=== PATIENT | male | born 1950 | race Hispanic/Latino ===

== ENCOUNTER 2017-09-29 10:22 | Emergency (ER) | payer MEDICARE ==
[2017-09-29 11:57] LABS: Basophils % (Auto) 0.4 % (0.0-1.8); Eosinophils % (Auto) 0.3 % (0.0-4.3); Hematocrit 38.7 % (35.5-45.6); Hemoglobin 13.1 gm/dl (11.8-15.2); Mean Corpuscular HGB Conc 34 % (32-34); Mean Corpuscular Hemoglobin 37 pg (28-32); Mean Corpuscular Volume 109 fl (84-94); Platelet Count 138 K/mm3 (140-440); Red Blood Count 3.55 M/mm3 (3.65-5.03); Red Cell Distribution Width 15.1 % (13.2-15.2); White Blood Count 8.9 K/mm3 (4.5-11.0)
[2017-09-29] MEDS ORDERED: ZOFRAN IV ONE (12:03)
[2017-09-29] MEDS ORDERED: NACL 0.9% 1000 ML 1,000 ML IV ONE ×2 (12:03→16:10)
[2017-09-29 12:14] LABS: Anion Gap 17 mmol/L; BUN/Creatinine Ratio 12; Blood Urea Nitrogen 7 mg/dL (9-20); Calcium 8.1 mg/dL (8.4-10.2); Carbon Dioxide 27 mmol/L (22-30); Chloride 95.3 mmol/L (98-107); Glucose 97 mg/dL (75-100); Potassium 3.4 mmol/L (3.6-5.0); Sodium 136 mmol/L (137-145)
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
[2017-09-29 12:16] LABS: Albumin 2.8 g/dL (3.9-5); Albumin/Globulin Ratio 0.8 %; Bilirubin,Direct 0.3 mg/dL (0-0.2); Bilirubin,Indirect 0.8 mg/dL; Bilirubin,Total 1.1 mg/dL (0.1-1.2); Total Protein 6.2 g/dL (6.3-8.2)
--- NOTE | 2017-09-29 13:02 | Cat Scan Report ---
CT HEAD WITHOUT CONTRAST INDICATION: Dizziness. COMPARISON: None similar at this institution. FINDINGS: Noncontrast head CT demonstrates symmetric, age-appropriate, mildly enlarged ventricles and sulci. Mild periventricular hypodensities. No acute infarct, hemorrhage, mass effect or midline shift. No abnormal extra axial fluid collections. Normal posterior fossa with preserved basilar cisterns. Normal eye globes. Slight rightward nasal septal deviation and 4-5 mm rightward nasal septal spur. Clear imaged paranasal sinuses and mastoid air cells. Bilateral external auditory canal debris may be directly visualized. Atherosclerotic ICA calcifications. Normal calvarium and scalp. Cervical spondylosis. CONCLUSION: No acute intracranial CT abnormality, as described. Thank you for the opportunity to participate in this patient's care.
--- NOTE | 2017-09-29 13:54 | Cat Scan Report ---
FINAL REPORT EXAM: CT ABDOMEN PELVIS WO CON HISTORY: right flank pain, diarrhea, dizziness TECHNIQUE: Noncontrast CT of the abdomen and pelvis performed. No IV or gastrointestinal contrast was administered.Coronal and sagittal reformatted images were obtained. PRIORS: None. FINDINGS: The visualized aspects of the lung bases are clear. There is a small hiatal hernia. There is cholelithiasis. Specifically there are numerous gallstones. There is fatty infiltration of the liver. Within the limitations of a non-enhanced study, the visualized spleen, pancreas, adrenal glands and right kidney demonstrate no significant abnormalities. There is a punctate nonobstructing left intrarenal calculus. There is no hydronephrosis or other evidence for acute obstructive uropathy seen. There is no abdominal aortic aneurysm. There is no evidence of intestinal obstruction. The appendix is normal. There is a small fat containing umbilical hernia. There is no free intraperitoneal air. There are no abnormal fluid collections seen. There is nonspecific mild bladder wall thickening. IMPRESSION: Mild fatty liver. Cholelithiasis. Specifically there are numerous moderate and small gallstones. The small fat containing umbilical hernia. Very small hiatal hernia. Punctate nonobstructing left intrarenal calculus. No hydronephrosis or evidence for acute obstructive uropathy. Nonspecific diffuse bladder wall thickening.
[2017-09-29 15:34] LABS: Bilirubin,Urine SM (Negative); Blood,Urine NEG (Negative); Ketones,Urine 20 mg/dL (Negative); Leukocyte Esterase,Urine NEG (Negative); Mucus,Urine 3+ /HPF; Nitrite,Urine NEG (Negative)
[2017-09-29 18:37] VITALS: BP 143/91
== END 2017-09-29 18:38 | disposition home or self-care (01) ==
LOC: ED 10:22
DX: R19.8 Other specified symptoms and signs involving the digestive system and abdomen (principal); E86.0 Dehydration; R42 Dizziness and giddiness; R10.9 Unspecified abdominal pain; Z90.49 Acquired absence of other specified parts of digestive tract; Z93.3 Colostomy status
CPT/HCPCS: 36415; 70450; 74176; 80048; 80074; 81001; 83690; 84484; 85025; 93005; 93010; 96361; 96374; 99285; J2405; J7030

== ENCOUNTER 2018-11-02 07:49 | Outpatient (CLI) | payer MEDICARE, MEDICAID | END 2018-11-02 07:50 | disposition home or self-care (01) | LOC: WOUND 07:49 | PROVIDERS: ATTEND Surgery | DX: I87.313 Chronic venous hypertension (idiopathic) with ulcer of bilateral lower extremity (principal); L97.822 Non-pressure chronic ulcer of other part of left lower leg with fat layer exposed; L97.811 Non-pressure chronic ulcer of other part of right lower leg limited to breakdown of skin; Z87.891 Personal history of nicotine dependence | CPT/HCPCS: 99214; G0463 ==

== ENCOUNTER 2019-02-19 07:59 | Outpatient (CLI) | payer MEDICARE ==
[2019-02-19] MEDS ORDERED: XYLOCAINE TOPICAL 4% TP ONE (09:00)
== END 2019-02-19 08:00 | disposition home or self-care (01) ==
LOC: WOUND 07:59
PROVIDERS: ATTEND Surgery
DX: L97.822 Non-pressure chronic ulcer of other part of left lower leg with fat layer exposed (principal); L97.812 Non-pressure chronic ulcer of other part of right lower leg with fat layer exposed; L97.511 Non-pressure chronic ulcer of other part of right foot limited to breakdown of skin; L97.521 Non-pressure chronic ulcer of other part of left foot limited to breakdown of skin; I87.2 Venous insufficiency (chronic) (peripheral); Z87.891 Personal history of nicotine dependence

== ENCOUNTER 2019-02-26 08:24 | Outpatient (CLI) | payer MEDICARE ==
[2019-02-26] MEDS ORDERED: XYLOCAINE TOPICAL 4% TP ONE (09:00)
[2019-02-26] MEDS ORDERED: AD OINTMENT TP SCH (10:00)
== END 2019-02-26 08:25 | disposition home or self-care (01) ==
LOC: WOUND 08:24
PROVIDERS: ATTEND Surgery
DX: L97.822 Non-pressure chronic ulcer of other part of left lower leg with fat layer exposed (principal); L97.812 Non-pressure chronic ulcer of other part of right lower leg with fat layer exposed; L97.511 Non-pressure chronic ulcer of other part of right foot limited to breakdown of skin; L97.521 Non-pressure chronic ulcer of other part of left foot limited to breakdown of skin; I10 Essential (primary) hypertension; I87.2 Venous insufficiency (chronic) (peripheral); Z87.891 Personal history of nicotine dependence
CPT/HCPCS: A6250

== ENCOUNTER 2019-02-28 05:49 | Day surgery (SDC) | payer MEDICARE ==
[2019-02-28] MEDS: NACL 0.9% 500 ML 500 ML IV SCH ×2 (06:41→10:00)
[2019-02-28 07:07] LABS: Hematocrit 31.1 % (35.5-45.6); Mean Corpuscular HGB Conc 35 % (32-34); Mean Corpuscular Volume 101 fl (84-94); Platelet Count 206 K/mm3 (140-440); Red Blood Count 3.09 M/mm3 (3.65-5.03); Red Cell Distribution Width 15.5 % (13.2-15.2)
[2019-02-28 07:17] LABS: INR 0.95 (0.87-1.13)
[2019-02-28 07:18] LABS: Partial Thromboplastin Time 36.8 Sec. (24.2-36.6)
[2019-02-28 07:21] LABS: BUN/Creatinine Ratio 18; Blood Urea Nitrogen 14 mg/dL (9-20); Calcium 8.3 mg/dL (8.4-10.2); Hemolysis Index 26
[2019-02-28] MEDS ORDERED: HEPARIN/NS 5000 UNIT/500ML(CATH LAB) 1,000 ML IR ONE (08:51)
[2019-02-28] MEDS ORDERED: HEPARIN 10,000 UNITS/10 ML ONE ×2 (08:51→09:52)
[2019-02-28] MEDS ORDERED: ANCEF/STERILE WATER 2 GM/20 ML 2 GM/20 ML SYRINGE IV ONE (08:52)
[2019-02-28] MEDS ORDERED: XYLOCAINE 2% INFILTRATI ONE (08:52)
[2019-02-28] MEDS ORDERED: HEPARIN/NS 5000 UNIT/500ML(CATH LAB) 500 ML IR ONE (09:15)
[2019-02-28] MEDS ORDERED: CALAN ONE (09:52)
[2019-02-28] MEDS ORDERED: NITROGLYCERIN SYRINGE 9 ML ONE (09:52)
[2019-02-28] MEDS: SUBLIMAZE ONE ×2 (10:01→10:09)
[2019-02-28] MEDS: VERSED ONE ×2 (10:01→10:09)
--- NOTE | 2019-02-28 10:53 | Short Stay Summary ---
Short Stay Documentation Date of service: 02/28/19 Narrative H&P: 68 year old male with nonhealing ulcerations of the lower extremities who presents for diagnostic angiogram due to swelling with nonpalpable pulses. - History Principal diagnosis: Mixed ulcerations of the bilateral lower extremities H&P: obtained from office - Allergies and Medications Current Medications: Allergies No Known Allergies Allergy (Verified 09/13/18 11:40) Home Medications Medication Instructions Recorded Confirmed Last Taken Type Famotidine [Pepcid] 20 mg PO BID #30 tablet 09/18/18 02/28/19 Unknown Rx Furosemide [Lasix TAB] 40 mg PO QDAY #30 tablet 09/18/18 02/28/19 02/27/19 Rx Spironolactone [Aldactone] 25 mg PO QDAY #30 tablet 09/18/18 02/28/19 02/27/19 Rx Carvedilol [Coreg] 1 tab PO DAILY 02/28/19 02/28/19 02/27/19 History Clindamycin [Clindamycin CAP] 300 mg PO TID #30 cap 02/28/19 Unknown Rx Saccharomyces Boulardii [Probiotic] 250 mg PO BID #50 capsule 02/28/19 Unknown Rx hydroCHLOROthiazide [HCTZ] 25 mg PO DAILY 02/28/19 02/28/19 02/27/19 History traMADol [Ultram 50 MG tab] 50 mg PO TID PRN #20 tablet 02/28/19 Unknown Rx Active Medications Sodium Chloride (Nacl 0.9% 500 Ml) 500 mls @ 50 mls/hr IV DIRECT CAM Last Admin: 02/28/19 10:00 Dose: 50 mls/hr Documented by: - Physical exam General appearance: no acute distress Lungs: Normal air movement Heart: Regular rate Gastrointestinal: normal Extremities: normal temperature, normal color, abnormal (swelling, multiple ulcerations of the calves) - Brief post op/procedure progress note Date of procedure: 02/28/19 Pre-op diagnosis: Mixed arterial and venous disease Post-op diagnosis: same Procedure: Diagnostic angiogram of the bilateral lower extremities Anesthesia: local (w/ conscious sedation) Surgeon: ESME GOMEZ Estimated blood loss: minimal Condition: stable - Hospital course Hospital course: Ready for discharge after TR band deflated. - Disposition Condition at discharge: Stable Disposition: DC- TO HOME OR SELFCARE - Discharge Diagnoses (1) Atherosclerotic PVD with ulceration Status: Acute (2) Venous hypertension, chronic, with ulcer Status: Acute (3) Cirrhosis Status: Acute (4) Venous insufficiency (chronic) (peripheral) Status: Acute Short Stay Discharge Plan Activity: advance as tolerated Weight Bearing Status: Weight Bear as Tolerated Diet: other (keep fluid restricted to 1.5L per day) Wound: keep clean and dry Additional Instructions: Do not lift more than 10 pounds with left hand for next week. Follow up with: VISHAL PAYNE MD [Primary Care Provider] - 7 Days Prescriptions: Clindamycin [Clindamycin CAP] 300 mg PO TID #30 cap Saccharomyces Boulardii [Probiotic] 250 mg PO BID #50 capsule traMADol [Ultram 50 MG tab] 50 mg PO TID PRN #20 tablet PRN Reason: Pain , Severe (7-10)
--- NOTE | 2019-02-28 11:04 | Operative Report ---
Operative Report Operative Report: EXAM: 1. Ultrasound-guided access of the left radial artery. 2. Third order selection of the right superficial femoral artery with angiography of the right lower extremity 3. Third order selection of the left superficial femoral artery with angiography of the left lower extremity 4. Selection of the abdominal aorta with aortography DATE: 02/28/19 WINDOW GLAZIER HELPER: ESME GOMEZ MD INDICATION: 68-year-old male with nonpalpable pedal pulses, and extensive ulcerations of the lower extremities with swelling and pain who has venous disease, and may also have arterial disease with mixed disease. MEDICATIONS: Please see nursing report for full details. CONTRAST: Please see lab animal technologist report for full details. PROCEDURE: The risks, benefits, and alternatives were discussed the patient; written informed consent was obtained. The left wrist was prepped and draped in a sterile fashion. The left radial artery was small but patent. Under direct ultrasound guidance, the left radial artery was accessed with a 21-gauge micropuncture needle. 0.018 inch wire was passed into the radial artery. Needle was exchanged for a 4/5 [place] glidesheath slender radial sheath. Radial cocktail was then administered. 0.035 inch wire and pigtail catheter were then used to select the abdominal aorta. Digital subtraction angiography was performed. Catheter was exchanged for a 4 Malaysian angled catheter. The right superficial femoral artery was selected and digital subtraction angiography was performed with the right lower extremity with runoff. Catheter was retracted to the right common femoral artery and digital subtraction angiography was performed. Catheter was retracted the right external iliac artery and digital subtraction angiography was performed. The leftsuperficial femoral artery was selected and digital subtraction angiography was performed with the left lower extremity with runoff. Catheter w as retracted to the left common femoral artery and digital subtraction angiography was performed. Catheter was retracted the left external iliac artery and digital subtraction angiography was performed. After reviewing the images, all wires, catheters, and sheaths were removed. TR band applied. Patient tolerated the procedure well. No immediate postprocedure complication. FINDINGS: AORTA: Infrarenal abdominal aorta was patent. RIGHT LOWER EXTREMITY: The right common iliac artery, external iliac artery, internal iliac artery, common femoral artery, profundofemoral artery, and superficial femoral artery were patent. The popliteal artery was patent. 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 The peroneal artery had some mild irregularity with less than 50% narrowing. The anterior tibial and posterior tibial artery were patent. The dorsalis pedis was quite small, but patent. LEFT LOWER EXTREMITY: The left common iliac artery, left external iliac artery, left internal iliac artery, common femoral artery, profundofemoral artery, and superficial femoral artery were patent. The popliteal artery was patent. The anterior tibial ar sangeeta, peroneal artery, and posterior tibial artery were patent. The dorsalis pedis was diminutive and supplied by both anterior communicating branches and the anterior tibial artery. IMPRESSION: 1. Successful bilateral lower extremity third order selection's with angiography of the abdominal aorta and lower extremities.
[2019-02-28] MEDS ORDERED: NORCO 5/325 PO PRN (12:09)
[2019-02-28 13:40] VITALS: BP 103/55
[2019-02-28 15:14] LABS: Anisocytosis 1+; Platelet Estimate Consistent w Auto; Total Cells Counted 100
== END 2019-02-28 14:20 | disposition home or self-care (01) ==
LOC: CATHLABREC 05:49
PROVIDERS: ATTEND Radiology Diagnostic Radiology
DX: I70.25 Atherosclerosis of native arteries of other extremities with ulceration (principal); I87.313 Chronic venous hypertension (idiopathic) with ulcer of bilateral lower extremity; I87.2 Venous insufficiency (chronic) (peripheral); I42.9 Cardiomyopathy, unspecified; I48.91 Unspecified atrial fibrillation; Z98.890 Other specified postprocedural states; Z79.899 Other long term (current) drug therapy; Z79.01 Long term (current) use of anticoagulants
CPT/HCPCS: 36247; 36415; 75625; 75716; 76937; 80048; 85007; 85025; 85610; 85730; 99156; 99157; C1887; C1894; J0690; J1644; J2250; J3010; J7040; 75710; Q9967

== ENCOUNTER 2019-03-09 08:10 | Outpatient (CLI) | payer MEDICARE ==
[2019-03-09] MEDS ORDERED: SILVER NITRATE TP ONE (09:00)
[2019-03-09] MEDS ORDERED: XYLOCAINE TOPICAL 4% TP ONE (09:00)
== END 2019-03-09 08:11 | disposition home or self-care (01) ==
LOC: WOUND 08:10
PROVIDERS: ATTEND Surgery
DX: I87.313 Chronic venous hypertension (idiopathic) with ulcer of bilateral lower extremity (principal); L97.821 Non-pressure chronic ulcer of other part of left lower leg limited to breakdown of skin; L97.811 Non-pressure chronic ulcer of other part of right lower leg limited to breakdown of skin; I89.0 Lymphedema, not elsewhere classified; I87.2 Venous insufficiency (chronic) (peripheral); Z87.891 Personal history of nicotine dependence

== ENCOUNTER 2019-03-14 07:45 | Outpatient (CLI) | payer MEDICARE ==
[2019-03-14] MEDS ORDERED: XYLOCAINE TOPICAL 4% TP ONE (08:30)
== END 2019-03-14 07:46 | disposition home or self-care (01) ==
LOC: WOUND 07:45
PROVIDERS: ATTEND Surgery
DX: I87.313 Chronic venous hypertension (idiopathic) with ulcer of bilateral lower extremity (principal); L97.821 Non-pressure chronic ulcer of other part of left lower leg limited to breakdown of skin; L97.811 Non-pressure chronic ulcer of other part of right lower leg limited to breakdown of skin; I89.0 Lymphedema, not elsewhere classified; I87.2 Venous insufficiency (chronic) (peripheral); Z87.891 Personal history of nicotine dependence

== ENCOUNTER 2019-03-21 07:43 | Outpatient (CLI) | payer MEDICARE | END 2019-03-21 07:44 | disposition home or self-care (01) | LOC: WOUND 07:43 | PROVIDERS: ATTEND Surgery | DX: I87.313 Chronic venous hypertension (idiopathic) with ulcer of bilateral lower extremity (principal); L97.821 Non-pressure chronic ulcer of other part of left lower leg limited to breakdown of skin; L97.811 Non-pressure chronic ulcer of other part of right lower leg limited to breakdown of skin; I89.0 Lymphedema, not elsewhere classified; I87.2 Venous insufficiency (chronic) (peripheral); Z87.891 Personal history of nicotine dependence ==

== ENCOUNTER 2019-05-14 09:39 | Outpatient (CLI) | payer MEDICARE ==
[2019-05-14] MEDS ORDERED: XYLOCAINE TOPICAL 4% TP ONE (10:30)
== END 2019-05-14 09:40 | disposition home or self-care (01) ==
LOC: WOUND 09:39
PROVIDERS: ATTEND Surgery
DX: L97.822 Non-pressure chronic ulcer of other part of left lower leg with fat layer exposed (principal); L97.811 Non-pressure chronic ulcer of other part of right lower leg limited to breakdown of skin; I87.2 Venous insufficiency (chronic) (peripheral); Z87.891 Personal history of nicotine dependence
CPT/HCPCS: 11042; 11045; G0463; 99215

== ENCOUNTER 2019-05-21 07:57 | Outpatient (CLI) | payer MEDICARE ==
[2019-05-21] MEDS ORDERED: XYLOCAINE TOPICAL 4% TP ONE (08:30)
== END 2019-05-21 07:58 | disposition home or self-care (01) ==
LOC: WOUND 07:57
PROVIDERS: ATTEND Surgery
DX: L97.822 Non-pressure chronic ulcer of other part of left lower leg with fat layer exposed (principal); I10 Essential (primary) hypertension; I87.2 Venous insufficiency (chronic) (peripheral); Z87.891 Personal history of nicotine dependence
CPT/HCPCS: 99214; G0463

== ENCOUNTER 2019-05-28 08:13 | Outpatient (CLI) | payer MEDICARE | END 2019-05-28 08:14 | disposition home or self-care (01) | LOC: WOUND 08:13 | PROVIDERS: ATTEND Surgery | DX: I87.313 Chronic venous hypertension (idiopathic) with ulcer of bilateral lower extremity (principal); L97.821 Non-pressure chronic ulcer of other part of left lower leg limited to breakdown of skin; L97.811 Non-pressure chronic ulcer of other part of right lower leg limited to breakdown of skin; I89.0 Lymphedema, not elsewhere classified; I87.2 Venous insufficiency (chronic) (peripheral); Z87.891 Personal history of nicotine dependence | CPT/HCPCS: 99214; G0463 ==

== ENCOUNTER 2019-06-11 07:47 | Outpatient (CLI) | payer MEDICARE | END 2019-06-11 07:48 | disposition home or self-care (01) | LOC: WOUND 07:47 | PROVIDERS: ATTEND Surgery | DX: L97.828 Non-pressure chronic ulcer of other part of left lower leg with other specified severity (principal); I87.2 Venous insufficiency (chronic) (peripheral); I10 Essential (primary) hypertension; Z87.891 Personal history of nicotine dependence | CPT/HCPCS: 99214; G0463 ==